=== PATIENT | female | born 1960 | race Caucasian/White ===

== ENCOUNTER 2016-11-16 15:37 | Outpatient (RCR) | payer OTHER ==
[2014-12-20 22:00] VITALS: BP 126/70
[~2016-11-16 15:37] MED LIST: CHILDREN'S ASPI81 M1 PO; HCTZ 25MG25 MG PO; LEVOTHYROXIN0.112 M1 PO
== END 2017-01-05 10:34 | disposition home or self-care (01) ==
LOC: PT 15:37
DX: Z47.89 Encounter for other orthopedic aftercare (principal)

== ENCOUNTER → 2017-03-16 | Outpatient (CLI) | payer OTHER ==
[2014-12-20 22:00] VITALS: BP 126/70
== END ==
LOC: LAB 12:32
DX: Z00.00 Encounter for general adult medical examination without abnormal findings (principal); Z13.220 Encounter for screening for lipoid disorders; E03.4 Atrophy of thyroid (acquired); I10 Essential (primary) hypertension

== ENCOUNTER → 2017-04-21 | Outpatient (CLI) | payer OTHER ==
[2014-12-20 22:00] VITALS: BP 126/70
== END ==
LOC: MAMMO 07:46
DX: Z12.31 Encounter for screening mammogram for malignant neoplasm of breast (principal)
CPT/HCPCS: G0202

== ENCOUNTER → 2017-07-01 | Outpatient (CLI) | payer OTHER ==
[2014-12-20 22:00] VITALS: BP 126/70
== END ==
LOC: LAB 16:17
DX: Z00.00 Encounter for general adult medical examination without abnormal findings (principal); E03.9 Hypothyroidism, unspecified; I10 Essential (primary) hypertension

== ENCOUNTER → 2018-02-22 | Outpatient (CLI) | payer OTHER ==
[2014-12-20 22:00] VITALS: BP 126/70
[2018-02-22 08:20] LABS: BASO # 0.1 (0.02-0.10); EOS # 0.2 (0.04-0.40); EOS % 2.5 % (1.0-5.0); HEMOGLOBIN 14.4 g/dL (12.5-16.0); LYMPH# 2.3 (1.50-4.00); MEAN CELL VOLUME 90 fl (78-100); MEAN CORPUSCULAR HEMOGLOBIN 31 pg (27-31); MEAN CORPUSCULAR HGB CONC 34 g/dL (33-37); MEAN PLATELET VOLUME 9.7 fl (7.4-10.4); MONO # 0.5 (0.20-0.80); PLATELET COUNT 275 K/mm3 (130-400); RED BLOOD COUNT 4.69 M/mm3 (4.10-5.30); RED CELL DISTRIBUTION WIDTH 13.2 % (11.5-14.5)
[2018-02-22 08:27] LABS: ALBUMIN 3.9 g/dL (3.5-5.0); BUN/CREATININE RATIO 13.1 (6.0-26.0); CALCIUM 9.1 mg/dL (8.4-10.2); POTASSIUM 3.9 mmol/L (3.6-5.0); TOTAL BILIRUBIN 0.7 mg/dL (0.2-1.3); TOTAL PROTEIN 7.2 g/dL (6.3-8.2)
== END ==
LOC: LAB 07:46
PROVIDERS: Nurse Practitioner Family
DX: Z01.419 Encounter for gynecological examination (general) (routine) without abnormal findings (principal); Z13.220 Encounter for screening for lipoid disorders; I10 Essential (primary) hypertension; E03.4 Atrophy of thyroid (acquired)

== ENCOUNTER → 2018-04-19 | Outpatient (CLI) | payer OTHER ==
[2014-12-20 22:00] VITALS: BP 126/70
== END ==
LOC: MAMMO 04-07 08:30
DX: Z12.31 Encounter for screening mammogram for malignant neoplasm of breast (principal)

== ENCOUNTER → 2019-05-11 | Outpatient (CLI) | payer BC ==
[2014-12-20 22:00] VITALS: BP 126/70
== END ==
LOC: MAMMO 08:16
DX: Z12.31 Encounter for screening mammogram for malignant neoplasm of breast (principal)

== ENCOUNTER → 2020-07-26 | Outpatient (REF) ==
[2014-12-20 22:00] VITALS: BP 126/70
== END ==
LOC: LAB 16:48
DX: Z00.00 Encounter for general adult medical examination without abnormal findings (principal); E03.9 Hypothyroidism, unspecified

== ENCOUNTER → 2022-03-10 | Outpatient (CLI) | payer OTHER | LOC: MAMMO 09:15 | DX: Z12.31 Encounter for screening mammogram for malignant neoplasm of breast (principal) ==

== ENCOUNTER → 2022-03-10 | Outpatient (CLI) | payer OTHER ==
[2022-03-10 10:19] LABS: BASO # 0.07 K/mm3 (0.02-0.10); EOS # 0.18 K/mm3 (0.04-0.40); EOS % 2.9 % (1.0-5.0); HEMATOCRIT 41.6 % (37.0-47.0); HEMOGLOBIN 14.2 g/dL (12.5-16.0); LYMPH# 1.86 K/mm3 (1.50-4.00); MEAN CELL VOLUME 90 fl (78-100); MEAN CORPUSCULAR HEMOGLOBIN 31 pg (27-31); MEAN CORPUSCULAR HGB CONC 34 g/dL (33-37); MEAN PLATELET VOLUME 9.4 fl (7.4-10.4); MONO # 0.49 K/mm3 (0.20-0.80); NEU # 3.71 K/mm3 (1.40-6.50); PLATELET COUNT 262 K/mm3 (130-400); RED BLOOD COUNT 4.64 M/mm3 (4.10-5.30); RED CELL DISTRIBUTION WIDTH 12.7 % (11.5-14.5); WHITE BLOOD COUNT 6.3 K/mm3 (4.8-10.8)
[2022-03-10 10:26] LABS: ALBUMIN 4.1 g/dL (3.4-4.8); POTASSIUM 3.9 mmol/L (3.5-5.1)
[2022-03-10 10:27] LABS: CALCIUM 9.8 mg/dL (8.3-10.5)
[2022-03-10 10:29] LABS: TOTAL PROTEIN 7.7 g/dL (6.2-8.1)
[2022-03-10 10:30] LABS: TOTAL BILIRUBIN 0.9 mg/dL (0.2-1.2)
== END ==
LOC: LAB 09:59
PROVIDERS: Physician Assistant
DX: Z00.00 Encounter for general adult medical examination without abnormal findings (principal); I10 Essential (primary) hypertension; F32.9 Major depressive disorder, single episode, unspecified; E03.9 Hypothyroidism, unspecified; K90.0 Celiac disease; R73.9 Hyperglycemia, unspecified